=== PATIENT | male | born 1980 | race Two or more races ===

== ENCOUNTER 2017-10-09 10:30 | Emergency (ER) | payer MEDICARE ==
[~2017-10-09] VITALS: Ht 175.3 cm; Wt 67.0 kg
[2017-10-09] MEDS ORDERED: METHYLPREDNISOLONE SOD SUCC 125 MG/2 ML VIAL IV STA (11:00)
[2017-10-09] MEDS ORDERED: IPRATROPIUM BROMIDE (0.02%) 0.5MG/2.5ML NEB HHN STA (11:00)
[2017-10-09] MEDS ORDERED: MAGNESIUM 2 G PREMIX 50 ML IV ONE (11:00)
[2017-10-09] MEDS ORDERED: ASPIRIN 81MG TABLET PO STA (11:00)
[2017-10-09] MEDS ORDERED: ALBUTEROL (0.083%) 2.5MG/3ML NEB HHN STA (11:00)
[2017-10-09 11:33] LABS: BASOPHILS % 1.4 % (0.0-2.0); EOSINOPHILS % 9.3 % (0.0-5.0); HEMATOCRIT. 40.2 % (42.0-52.0); HEMOGLOBIN. 13.3 g/dL (14.0-18.0); LYMPHOCYTES % 26.5 % (20.0-50.0); MEAN CORPUSCULAR HEMOGLOBIN 26.9 pg (28.0-32.0); MEAN CORPUSCULAR VOLUME 81.2 fL (80.0-94.0); MEAN PLATELET VOLUME 7.6 fl (7.4-10.4); MONOCYTES % 10.4 % (2.0-8.0); NEUTROPHILS % 52.4 % (40.0-76.0); PLATELET 400 x1000/uL (130-400); RED BLOOD CELL COUNT 4.95 mill/uL (4.7-6.1); RED CELL DISTRIBUTION WIDTH 15.8 % (11.6-14.6)
[2017-10-09 11:51] LABS: INR 1.1; PARTIAL THROMBOPLASTIN TIME 28.9 sec (23.4-31.0); PROTHROMBIN TIME 11.4 sec (9.4-11.6)
[2017-10-09 11:52] LABS: CHLORIDE 99 mEq/L (98-107)
[2017-10-09 16:48] VITALS: BP 125/84
[2017-10-09] MEDS ORDERED: ENOXAPARIN 40MG/0.4ML SYR SUBCUT SCH (17:15)
[2017-10-09] MEDS ORDERED: IPRATROPIUM/ALBUTEROL 0.5-3(2.5)MG/3ML NEB INH PRN (17:15)
[2017-10-09] MEDS ORDERED: ACETAMINOPHEN 325MG TABLET PO PRN (17:15)
[2017-10-09] MEDS ORDERED: BUDESONIDE 0.5MG/2ML NEB HHN SCH (17:15)
[2017-10-09] MEDS ORDERED: HYDROCODONE/ACETAMINOPHEN 5/325MG TABLET PO PRN (17:15)
[2017-10-09] MEDS ORDERED: CLONIDINE 0.1MG TABLET PO PRN (17:15)
[2017-10-09] MEDS ORDERED: IPRATROPIUM/ALBUTEROL 0.5-3(2.5)MG/3ML NEB INH SCH (17:15)
[2017-10-09] MEDS ORDERED: ONDANSETRON HCL 4MG/2ML VIAL IV PRN (17:15)
[2017-10-09 18:02] LABS: HEPATITIS B SURFACE ANTIGEN NEGATIVE
[2017-10-09 18:30] LABS: HEPATITIS B CORE AB IGM NEGATIVE
[2017-10-09 18:32] LABS: HEPATITIS A AB IGM NEGATIVE (NEGATIVE)
[2017-10-09] MEDS ORDERED: FAMOTIDINE 20MG/2ML VIAL IV SCH (21:00)
[2017-10-10] MEDS ORDERED: METHYLPREDNISOLONE SOD SUCC 125 MG/2 ML VIAL IV SCH (09:00)
[2017-10-10] MEDS ORDERED: MONTELUKAST SODIUM 10MG TABLET PO SCH (17:00)
== END 2017-10-09 17:56 | disposition left against medical advice (07) ==
LOC: ER 10:30 → EDBEDREQ 14:16 → ENRESERV 15:19 → CANRESERV 15:19 → ENRESERV 16:23 → SUPCPDRO 17:15 → ER 17:56 → CANBEDREQ 22:41
DX: J45.902 Unspecified asthma with status asthmaticus (principal); F17.200 Nicotine dependence, unspecified, uncomplicated; Z79.82 Long term (current) use of aspirin
CPT/HCPCS: 36415; 71045; 80053; 84484; 85025; 85610; 85730; 93005; 94644; 96365; 96375; 99285; J2930; J3475; J7611; Z7610; 86705; 86709; 86803; 87340